=== PATIENT | female | born 1930 | race Caucasian/White ===

== ENCOUNTER → 2016-12-14 | Outpatient (CLI) | payer MEDICARE, OTHER ==
[~2016-12-14] MED LIST: MECL-68 PO; TESS100C PO; TYLE325T5 PO; VITA200016 PO
--- NOTE | 2016-12-14 13:52 | REP ---
LEFT KNEE, FIVE VIEWS: HISTORY: Contusion. COMPARISON: 01/25/2015 There is no acute fracture or dislocation. There is narrowing of the joint spaces. Osteophytes are present on the femur and patella. A very small suprapatellar joint effusion is present. IMPRESSION: Degenerative change, as described above. Signed by Timmy Kilgore MD 12/14/2016 01:57 P
--- NOTE | 2016-12-14 13:55 | REP ---
LEFT WRIST, FOUR VIEWS: HISTORY: Contusion. There is no acute fracture or dislocation. There is narrowing of the 1st carpometacarpal joint space with associated osteophyte formation and sclerosis. There is narrowing of the interphalangeal joint space of the 1st digit with associated osteophyte formation. IMPRESSION: Degenerative change, as described above. Signed by Timmy Kilgore MD 12/14/2016 01:56 P
== END ==
LOC: M WUC 13:02
PROVIDERS: ATTEND Physician Assistant
DX: S60.212A Contusion of left wrist, initial encounter (principal); S80.02XA Contusion of left knee, initial encounter; W18.30XA Fall on same level, unspecified, initial encounter; Y92.009 Unspecified place in unspecified non-institutional (private) residence as the place of occurrence of the external cause

== ENCOUNTER → 2017-02-17 | Outpatient (REF) | payer MEDICARE, OTHER ==
[2017-02-17 16:49] LABS: INR 0.99
[2017-02-17 16:52] LABS: BASO % 0.6 % (0.0-1.0); EOS # 0.2 K/mm3 (0.0-0.50); EOS % 2.3 % (0.0-3.0); LARGE UNSTAINED CELL # 0.1 K/mm3 (0.0-0.4); LARGE UNSTAINED CELL % 1.6 % (0.0-4.0); LYMPH # 1.9 K/mm3 (1.5-4.5); LYMPH % 21.8 % (24.0-44.0); MEAN CORPUSCULAR HEMOGLOBIN 28.6 pg (27.0-33.0); MEAN CORPUSCULAR HGB CONC 32.9 g/dl (32.0-36.5); MEAN CORPUSCULAR VOLUME 87.1 fl (80.0-96.0); MONO # 0.7 K/mm3 (0.0-0.8); MONO % 8.1 % (0.0-5.0); NEUTROPHILS # 5.2 K/mm3 (1.8-7.7); NEUTROPHILS % 65.6 % (36.0-66.0); PLATELET COUNT, AUTOMATED 199 k/mm3 (150-450)
[2017-02-17 17:53] LABS: ALBUMIN 3.4 GM/DL (3.2-5.2); ALKALINE PHOSPHATASE 60 U/L (45-117); ALT/SGPT 20 U/L (12-78); ANION GAP 7 MEQ/L (8-16); AST/SGOT 14 U/L (15-37); BILIRUBIN,TOTAL 0.4 MG/DL (0.2-1.0); BLOOD UREA NITROGEN 20 MG/DL (7-18); CALCIUM LEVEL 8.8 MG/DL (8.8-10.2); CARBON DIOXIDE LEVEL 29 MEQ/L (21-32); CHLORIDE LEVEL 108 MEQ/L (98-107); CREATININE FOR GFR 0.63 MG/DL (0.55-1.02); GLOMERULAR FILTRATION RATE > 60.0 (>32); GLUCOSE, FASTING 105 MG/DL (83-110); POTASSIUM SERUM 3.9 MEQ/L (3.5-5.1); SODIUM LEVEL 144 MEQ/L (136-145); TOTAL PROTEIN 6.8 GM/DL (6.4-8.2)
== END ==
LOC: M SFHCPLAZ 14:43
PROVIDERS: ATTEND Physician Assistant Medical
DX: Z01.818 Encounter for other preprocedural examination (principal); H25.12 Age-related nuclear cataract, left eye
CPT/HCPCS: 36415; 80053; 85025; 85610; 85730; 93005; G0463

== ENCOUNTER → 2017-03-24 | Outpatient (CLI) | payer MEDICARE, OTHER ==
--- NOTE | 2017-03-25 05:37 | ECHO ---
DATE OF PROCEDURE: 03/24/2017 REFERRING PHYSICIAN: Dr. Ankit Tyler. INDICATION: Abnormal ECG. HEIGHT: 157 cm. WEIGHT: 67 kg. DIMENSIONS: IVS: 1.3 LV: 3.7 LVPW: 1.3 LA: 3.4 Aorta: 3.5 FINDINGS: The study is of fair technical quality. Left ventricle is normal size and hyperdynamic contractility. I estimate LVEF around 70%. Right ventricle is normal size and systolic function. Both atria are at least mildly enlarged. Aortic valve was poorly visualized. There is some sclerosis but it appears to have three cusps. There are also mild degenerative abnormalities of mitral valve with mitral annular calcifications. Mobility of leaflets is preserved. Tricuspid valve appears normal. Pulmonic valve was not well seen. No pericardial effusion is present. Inferior vena cava is normal size. Aortic root is normal. Aortic arch and abdominal aorta were not well visualized. Doppler interrogation of aortic valve reveals trivial stenosis and mild insufficiency. There is trace mitral insufficiency and mild tricuspid insufficiency. Pulmonary artery pressure is calculated within normal limits based on fair quality TR jet. Mitral inflow pattern and tissue Doppler imaging of mitral annulus reveal grade 1 diastolic dysfunction. CONCLUSIONS: 1. Study is of fair technical quality. 2. Normal LV size with mild LVH and hyperdynamic LV systolic function. Grade 1 diastolic dysfunction. 3. Aortic sclerosis resulting in trivial stenosis and mild insufficiency. 4. Normal central venous pressure and probably normal pulmonary artery pressure. COMMENT: Subacute bacterial endocarditis (SBE) prophylaxis is not recommended. Overall study most consistent with hypertensive heart disease.
== END ==
LOC: M CARPUL 13:39
PROVIDERS: ATTEND Family Medicine
DX: I35.1 Nonrheumatic aortic (valve) insufficiency (principal)

== ENCOUNTER → 2018-02-09 | Outpatient (CLI) | payer MEDICARE, OTHER | LOC: M RAD 18:11 | DX: R51 Headache (principal); I67.81 Acute cerebrovascular insufficiency; G31.9 Degenerative disease of nervous system, unspecified; Z86.73 Personal history of transient ischemic attack (TIA), and cerebral infarction without residual deficits; I49.9 Cardiac arrhythmia, unspecified; H65.01 Acute serous otitis media, right ear; R42 Dizziness and giddiness | CPT/HCPCS: 70551 ==

== ENCOUNTER → 2018-02-09 | Outpatient (REF) | payer MEDICARE, OTHER ==
[2018-02-09 15:48] LABS: ANION GAP 9 MEQ/L (8-16); BLOOD UREA NITROGEN 22 MG/DL (7-18); CALCIUM LEVEL 8.9 MG/DL (8.8-10.2); CARBON DIOXIDE LEVEL 27 MEQ/L (21-32); CHLORIDE LEVEL 108 MEQ/L (98-107); CREATININE FOR GFR 0.69 MG/DL (0.55-1.30); GLOMERULAR FILTRATION RATE > 60.0 (>32); GLUCOSE, FASTING 109 MG/DL (70-100); POTASSIUM SERUM 4.2 MEQ/L (3.5-5.1); SODIUM LEVEL 144 MEQ/L (136-145)
== END ==
LOC: M SFHCPLAZ 14:29
DX: R51 Headache (principal)
CPT/HCPCS: 80048

== ENCOUNTER → 2018-02-10 | Outpatient (CLI) | payer MEDICARE, OTHER ==
[~2018-02-10] MED LIST changes: -MECL-68 PO; +PROHANCE 279.3MG/ML 15ML VIAL (A9576) As Ordered; -TESS100C PO; -TYLE325T5 PO; -VITA200016 PO
== END ==
LOC: M RAD 11:45
DX: R51 Headache (principal); R42 Dizziness and giddiness; R11.0 Nausea
CPT/HCPCS: A9576

== ENCOUNTER 2018-07-05 13:01 | Emergency (ER) | payer MEDICARE, OTHER ==
[~2018-07-05] VITALS: Ht 160 cm; Wt 66.8 kg
[~2018-07-05 13:01] MED LIST changes: +MECL-68 PO; -PROHANCE 279.3MG/ML 15ML VIAL (A9576) As Ordered; +TESS100C PO; +TYLE325T5 PO; +VITA200016 PO
[2018-07-05] MEDS ORDERED: VITA500T PO (13:10)
[2018-07-05] MEDS: NS 500 ML IV ONE ×2 (14:37→14:42)
[2018-07-05 14:42] LABS: BASO # 0.1 10^3/uL (0.0-0.2); BASO % 0.8 % (0.0-1.0); EOS # 0.1 10^3/uL (0.0-0.50); EOS % 1.3 % (0.0-3.0); HEMATOCRIT 44.9 % (36.0-47.0); HEMOGLOBIN 14.5 g/dl (12.0-15.5); LYMPH # 1.5 10^3/uL (1.5-4.5); LYMPH % 16.2 % (24.0-44.0); MEAN CORPUSCULAR HGB CONC 32.3 g/dl (32.0-36.5); MEAN CORPUSCULAR VOLUME 86.7 fl (80.0-96.0); MONO % 10.7 % (0.0-5.0); NEUTROPHILS # 6.5 10^3/uL (1.8-7.7); NEUTROPHILS % 70.7 % (36.0-66.0); PLATELET COUNT, AUTOMATED 254 10^3/uL (150-450); RED BLOOD COUNT 5.18 10^6/uL (4.00-5.40); WHITE BLOOD COUNT 9.2 10^3/uL (4.0-10.0)
[2018-07-05 14:52] LABS: APPEARANCE, URINE CLEAR (CLEAR); BACTERIA, URINE AUTO 1+ (NEGATIVE); BILIRUBIN, URINE AUTO NEGATIVE (NEGATIVE); BLOOD, URINE BLOOD 1+ (NEGATIVE); COLOR, URINE YELLOW (YELLOW); GLUCOSE, URINE (UA) AUTO NEGATIVE (NEGATIVE); KETONE, URINE AUTO NEGATIVE (NEGATIVE); LEUKOCYTE ESTERASE, URINE AUTO 2+ (NEGATIVE); MUCUS, URINE SMALL (NEGATIVE); NITRITE, URINE AUTO NEGATIVE (NEGATIVE); PROTEIN, URINE AUTO NEGATIVE (NEGATIVE); RBC, URINE AUTO 3 /HPF (0-3); SPECIFIC GRAVITY URINE AUTO 1.012 (1.002-1.035); SQUAMOUS EPITHELIAL CELL UR AU 1 /HPF (0-6); UROBILINOGEN, URINE AUTO 0.2 mg/dL (0.0-2.0); WBC, URINE AUTO 1 /HPF (0-3)
[2018-07-05 14:54] LABS: INR 0.98; PROTHROMBIN TIME 13.1 SECONDS (12.1-14.4)
[2018-07-05 14:55] LABS: PARTIAL THROMBOPLASTIN TIME 32.9 SECONDS (25.4-37.6)
[2018-07-05 15:07] LABS: ALBUMIN 3.3 GM/DL (3.2-5.2); ALT/SGPT 17 U/L (12-78); BILIRUBIN,DIRECT 0.1 MG/DL (0.0-0.2); BILIRUBIN,TOTAL 0.4 MG/DL (0.2-1.0); BLOOD UREA NITROGEN 16 MG/DL (7-18); CALCIUM LEVEL 8.9 MG/DL (8.8-10.2); CARBON DIOXIDE LEVEL 30 MEQ/L (21-32); CHLORIDE LEVEL 106 MEQ/L (98-107); CREATININE FOR GFR 0.57 MG/DL (0.55-1.30); GLOMERULAR FILTRATION RATE > 60.0 (>32); GLUCOSE, FASTING 96 MG/DL (70-100); POTASSIUM SERUM 4.2 MEQ/L (3.5-5.1); SODIUM LEVEL 142 MEQ/L (136-145); TOTAL PROTEIN 6.7 GM/DL (6.4-8.2)
[2018-07-05] MEDS ORDERED: ANUS2.5C2 TOP (15:36)
--- NOTE | 2018-07-05 15:40 | REP ---
Clinical: Left flank pain. Technique: Axial noncontrast images from the lung bases to the pubic symphysis with coronal and sagittal re-formations. Findings: Lung bases are clear. Liver, spleen, pancreas, gallbladder, bilateral adrenal glands and right kidney appear normal for noncontrast evaluation. Left kidney demonstrates peripelvic and cortical hypodensities likely representing cysts without perinephric stranding or hydroureteronephrosis. No evidence for obstructing ureteral calculi. The enteric system demonstrates moderate fecal stasis without obstruction. Diffuse colonic and sigmoid diverticulosis noted. No definite acute inflammatory process or evidence for diverticulitis identified. Pelvis demonstrates normal bladder and evidence for prior hysterectomy. No pelvic fluid or ascites. No free air. No adenopathy. Atherosclerotic changes of the aorta and vasculature without aneurysm. Musculoskeletal structures demonstrate degenerative changes and hemangiomas involving the T11, L2, and L4 vertebral bodies. Impression: 1. Hypodense lesions within the left kidney likely representing cysts may be followed by ultrasound. No hydronephrosis, intrarenal or obstructing ureteral calculi. 2. Diffuse colonic and sigmoid diverticulosis without definite evidence for diverticulitis or focal inflammatory process. 3. Further chronic changes as described above. 4. No ascites, focal inflammatory stranding, or adenopathy appreciated. Electronically Signed by Dennis Jung MD 07/05/2018 03:31 P
[2018-07-05] MEDS ORDERED: MIRA3350 PO (15:42)
[2018-07-05 15:45] VITALS: BP 138/86
--- NOTE | 2018-07-10 08:49 | ED PDOC ---
Post-Departure Follow-Up radiology rpeort faxed to Cinthya Miranda MD Jul 10, 2018 08:49
== END 2018-07-05 15:46 | disposition home or self-care (01) ==
LOC: M ED 13:01
DX: K64.8 Other hemorrhoids (principal); M47.9 Spondylosis, unspecified; N28.1 Cyst of kidney, acquired; K57.90 Diverticulosis of intestine, part unspecified, without perforation or abscess without bleeding; Z87.891 Personal history of nicotine dependence
CPT/HCPCS: 74176; 80048; 80076; 81001; 81002; 82270; 85025; 85610; 85730; 99284; G0463

== ENCOUNTER → 2018-07-26 | Outpatient (CLI) | payer MEDICARE, OTHER ==
[~2018-07-26] MED LIST changes: +ANUS2.5C2 TOP; +MIRA3350 PO; +VITA500T PO
--- NOTE | 2018-07-26 19:07 | REP ---
Nasal bones three views History: Contusion There is no acute fracture or bone lesion. The sinuses are clear. Impression: There is no acute fracture Electronically Signed by Timmy Kilgore MD 07/26/2018 06:59 P
== END ==
LOC: M WUC 18:36
PROVIDERS: ATTEND Physician Assistant
DX: S00.33XA Contusion of nose, initial encounter (principal); X58.XXXA Exposure to other specified factors, initial encounter; Y92.9 Unspecified place or not applicable

== ENCOUNTER 2019-03-07 20:28 | Emergency (ER) | payer MEDICARE, OTHER ==
[~2019-03-07] VITALS: Ht 160 cm; Wt 68.2 kg
[2019-03-07 20:28] VITALS: BP 186/93
[2019-03-07] MEDS ORDERED: NORCO 5/325MG TABLET (BULK FOR ED) PO ONE (22:30)
--- NOTE | 2019-03-08 07:38 | REP ---
Left ankle four views: There is soft tissue edema laterally. There is a fracture at the base of the fifth digit metatarsal, nondisplaced. There is demineralization. There is questionably a fracture along the posterior inferior margin of the cuboid ossicle on the lateral view. This could be artifact from demineralization and projection. Electronically Signed by Oj Sykes MD 03/08/2019 07:29 A
--- NOTE | 2019-03-08 07:39 | REP ---
Left foot four views: There is a fracture of the base of the fifth digit metatarsal, nondisplaced. There is demineralization. The lateral view there is question of a fracture of the posterior inferior margin of the cuboid. This could be artifact from demineralization and projection. Consider CT for confirmation if there is clinical point tenderness. Electronically Signed by Oj Sykes MD 03/08/2019 07:31 A
== END 2019-03-07 22:58 | disposition home or self-care (01) ==
LOC: M ED 20:28
DX: S93.402A Sprain of unspecified ligament of left ankle, initial encounter (principal); S92.352A Displaced fracture of fifth metatarsal bone, left foot, initial encounter for closed fracture; M85.872 Other specified disorders of bone density and structure, left ankle and foot; W19.XXXA Unspecified fall, initial encounter; Y92.099 Unspecified place in other non-institutional residence as the place of occurrence of the external cause; Y93.9 Activity, unspecified; Y99.9 Unspecified external cause status; I51.9 Heart disease, unspecified; Z79.899 Other long term (current) drug therapy; Z91.013 Allergy to seafood; Z88.0 Allergy status to penicillin; Z88.2 Allergy status to sulfonamides; Z88.1 Allergy status to other antibiotic agents; Z88.5 Allergy status to narcotic agent; Z91.89 Other specified personal risk factors, not elsewhere classified

== ENCOUNTER → 2020-01-09 | Outpatient (CLI) | payer MEDICARE, OTHER ==
[~2020-01-09] MED LIST changes: +ACET-683 PO; +MACR100C43 PO; -MECL-68 PO; +MECL1TAB31 PO; +TRAM50TA2 PO; +VITA-243 PO; -VITA500T PO
--- NOTE | 2020-01-09 12:51 | REP ---
Clinical: Lower back pain. Technique: AP, lateral, bilateral oblique and coned-down views of the lumbosacral spine. Findings: Chronic dextroconvex scoliosis, osteopenia and moderate multilevel degenerative changes are appreciated. No obvious acute fracture / compression injury or subluxation. Impression: Moderate multilevel degenerative spondylosis. Electronically Signed by Dennis Jung MD 01/09/2020 12:42 P
== END ==
LOC: M ADAMS 12:01
PROVIDERS: ATTEND Family Medicine
DX: M47.897 Other spondylosis, lumbosacral region (principal); M54.5 Low back pain
CPT/HCPCS: 72110; G0463

== ENCOUNTER 2020-01-11 16:51 | Emergency (ER) | payer MEDICARE, OTHER ==
[~2020-01-11] VITALS: Ht 160 cm; Wt 63.6 kg
[~2020-01-11 16:51] MED LIST changes: -ACET-683 PO; -MACR100C43 PO; -TRAM50TA2 PO
--- NOTE | 2020-01-11 18:41 | REPVR ---
PROCEDURE INFORMATION: Exam: CT Lumbar Spine Without Contrast Exam date and time: 01/11/2020 6:06 PM Age: 89 years old Clinical indication: Low back pain; Additional info: PT tender high lumbar, no grey, otc no help TECHNIQUE: Imaging protocol: Computed tomography images of the lumbar spine without contrast. Radiation optimization: All CT scans at this facility use at least one of these dose optimization techniques: automated exposure control; mA and/or kV adjustment per patient size (includes targeted exams where dose is matched to clinical indication); or iterative reconstruction. COMPARISON: DX SPINE LS COMPLETE 01/09/2020 12:00 PM FINDINGS: Vertebrae: Hemangioma of L4, L3, L2 and T11 vertebra. Grade 1 anterolisthesis of L4 over L5. L1-L2: Disc bulge. Bilateral facet hypertrophy. No spinal canal stenosis. Moderate bilateral neural foraminal narrowing. L2-L3: Disc bulge. Bilateral facet hypertrophy. No spinal canal stenosis. Moderate bilateral neural foraminal narrowing. L3-L4: Disc bulge. Bilateral facet hypertrophy. No spinal canal stenosis. Moderate bilateral neural foraminal narrowing. L4-L5: Disc bulge bilateral bilateral facet hypertrophy. Mild spinal canal stenosis. Moderate bilateral neural foraminal narrowing. L5-S1: Bilateral facet hypertrophy. Mild disc bulge. Moderate bilateral neural foraminal narrowing. No spinal canal stenosis. Other bones/joints: Diffuse demineralization of the bones. Stomach and bowel: Diverticulosis of the sigmoid colon. Vasculature: Atherosclerotic calcification of the abdominal aorta. Soft tissues: Unremarkable. IMPRESSION: No acute abnormality. Grade 1 anterolisthesis of L4 over L5, likely degenerative. Multilevel degenerative disc disease with neural foraminal narrowing. Moderate bilateral neural foraminal narrowing at L1-L2, L2-L3, L3-L4, L4-L5 and L5-S1. Mild spinal canal stenosis at L4-L5. Electronically signed by: Luis Hdz On 01/11/2020 18:40:28 PM
[2020-01-11] MEDS ORDERED: traMADol 50 MG TAB PO ONE ×2 (19:00→19:30)
[2020-01-11] MEDS ORDERED: TRAM50TA2 PO (19:24)
[2020-01-11] MEDS ORDERED: MACR100C43 PO (19:24)
[2020-01-11] MEDS ORDERED: NITROFURANTOIN (MACROBID) 100 MG CAP PO ONE (19:30)
[2020-01-11 19:34] VITALS: BP 157/80
--- NOTE | 2020-01-16 10:26 | ED PDOC ---
Post-Departure Follow-Up dr phillips faxed formal report of ct ls spine for fu Reese Davalos MD Jan 16, 2020 10:26
== END 2020-01-11 19:45 | disposition home or self-care (01) ==
LOC: M ED 16:51
DX: N39.0 Urinary tract infection, site not specified (principal)

== ENCOUNTER 2020-01-13 11:13 | Emergency (ER) | payer MEDICARE, OTHER ==
[~2020-01-13] VITALS: Ht 160 cm; Wt 63.6 kg
[~2020-01-13 11:13] MED LIST changes: +MACR100C43 PO; +TRAM50TA2 PO
--- NOTE | 2020-01-13 12:13 | REP ---
Clinical: Flank pain. Technique: Axial noncontrast images from the lung bases to the pubic symphysis with coronal and sagittal re-formations. Comparison: 07/05/2018. Findings: Liver, spleen, pancreas, gallbladder, and bilateral adrenal glands and right kidney are normal/stable. Left kidney demonstrates stable cortical and central peripelvic hypodensities compatible with cysts. No perinephric stranding or hydronephrosis. The enteric system is without obstruction or acute inflammatory process. Scattered colonic diverticulosis noted without acute diverticulitis. Pelvis demonstrates normal bladder and evidence for prior hysterectomy. No pelvic fluid or ascites. No free air. No adenopathy. Abdominal aorta without aneurysm or dissection. Musculoskeletal structures demonstrate degenerative changes without acute osseous abnormality. Lung bases are relatively clear. Impression: 1. Stable chronic changes to the left kidney. No evidence for acute urinary tract pathology. 2. Scattered colonic diverticula without acute diverticulitis. 3. No acute abdominopelvic pathology appreciated. Electronically Signed by Dennis Jung MD 01/13/2020 12:04 P
[2020-01-13 12:14] LABS: BASO # 0.1 10^3/uL (0.0-0.2); BASO % 0.5 % (0.0-1.0); EOS # 0.1 10^3/uL (0.0-0.5); EOS % 1.2 % (0.0-3.0); HEMATOCRIT 43.9 % (36.0-47.0); HEMOGLOBIN 13.9 g/dl (12.0-15.5); LYMPH # 1.1 10^3/uL (1.5-5.0); LYMPH % 10.6 % (24.0-44.0); MEAN CORPUSCULAR HEMOGLOBIN 28.1 pg (27.0-33.0); MEAN CORPUSCULAR HGB CONC 31.7 g/dl (32.0-36.5); MEAN CORPUSCULAR VOLUME 88.9 fl (80.0-96.0); MONO % 9.1 % (0.0-5.0); NEUTROPHILS # 8.4 10^3/uL (1.5-8.5); NEUTROPHILS % 78.2 % (36.0-66.0); PLATELET COUNT, AUTOMATED 239 10^3/uL (150-450); RED BLOOD COUNT 4.94 10^6/uL (4.00-5.40); WHITE BLOOD COUNT 10.7 10^3/uL (4.0-10.0)
[2020-01-13 12:35] LABS: ALBUMIN 3.3 GM/DL (3.2-5.2); ALT/SGPT 13 U/L (12-78); BILIRUBIN,DIRECT 0.2 MG/DL (0.0-0.2); BILIRUBIN,TOTAL 0.4 MG/DL (0.2-1.0); BLOOD UREA NITROGEN 24 MG/DL (7-18); CARBON DIOXIDE LEVEL 26 MEQ/L (21-32); CHLORIDE LEVEL 107 MEQ/L (98-107); CREATININE FOR GFR 0.67 MG/DL (0.55-1.30); GLOMERULAR FILTRATION RATE > 60.0 (>32); GLUCOSE, FASTING 111 MG/DL (70-100); LIPASE 60 U/L (73-393); SODIUM LEVEL 138 MEQ/L (136-145); TOTAL PROTEIN 6.5 GM/DL (6.4-8.2)
[2020-01-13] MEDS ORDERED: FOSFOMYCIN TROMETHAMINE 3 GM POWDER PACKET (MONUROL) PO ONE (13:15)
[2020-01-13] MEDS ORDERED: LIDOCAINE 5% (LIDODERM) PATCH TD ONE (13:15)
[2020-01-13 14:03] VITALS: BP 158/70
[2020-01-14] MEDS ORDERED: **NOTE PATIENT COMMENT** MISC XX ONE (02:00)
== END 2020-01-13 14:20 | disposition home or self-care (01) ==
LOC: M ED 11:13
DX: S39.012A Strain of muscle, fascia and tendon of lower back, initial encounter (principal); Y92.9 Unspecified place or not applicable; Y93.9 Activity, unspecified; Y99.9 Unspecified external cause status; N39.0 Urinary tract infection, site not specified; G50.0 Trigeminal neuralgia; G51.0 Bell's palsy; Z79.899 Other long term (current) drug therapy; Z91.013 Allergy to seafood; Z88.0 Allergy status to penicillin; Z88.2 Allergy status to sulfonamides

== ENCOUNTER 2020-01-22 11:37 | Emergency (ER) | payer MEDICARE, OTHER ==
[~2020-01-22] VITALS: Ht 160 cm; Wt 63.6 kg
[2020-01-22] MEDS ORDERED: ACET-683 PO (12:09)
[2020-01-22 13:15] LABS: BASO # 0.1 10^3/uL (0.0-0.2); BASO % 0.8 % (0.0-1.0); EOS # 0.1 10^3/uL (0.0-0.5); EOS % 0.6 % (0.0-3.0); HEMATOCRIT 44.9 % (36.0-47.0); HEMOGLOBIN 14.4 g/dl (12.0-15.5); LYMPH # 1.4 10^3/uL (1.5-5.0); LYMPH % 16.6 % (24.0-44.0); MEAN CORPUSCULAR HEMOGLOBIN 28.2 pg (27.0-33.0); MEAN CORPUSCULAR HGB CONC 32.1 g/dl (32.0-36.5); MEAN CORPUSCULAR VOLUME 87.9 fl (80.0-96.0); MONO # 0.8 10^3/uL (0.0-0.8); MONO % 8.9 % (0.0-5.0); NEUTROPHILS # 6.2 10^3/uL (1.5-8.5); NEUTROPHILS % 72.6 % (36.0-66.0); PLATELET COUNT, AUTOMATED 259 10^3/uL (150-450); RED BLOOD COUNT 5.11 10^6/uL (4.00-5.40); WHITE BLOOD COUNT 8.6 10^3/uL (4.0-10.0)
[2020-01-22] MEDS ORDERED: ACETAMINOPHEN 500 MG TAB PO ONE (13:15)
[2020-01-22 13:32] LABS: ALBUMIN 3.3 GM/DL (3.2-5.2); ALT/SGPT 12 U/L (12-78); BILIRUBIN,DIRECT 0.1 MG/DL (0.0-0.2); BILIRUBIN,TOTAL 0.3 MG/DL (0.2-1.0); BLOOD UREA NITROGEN 15 MG/DL (7-18); C REACTIVE PROTEIN QUANTITATIV 0.41 MG/DL (0.00-0.30); CALCIUM LEVEL 8.6 MG/DL (8.8-10.2); CARBON DIOXIDE LEVEL 25 MEQ/L (21-32); CHLORIDE LEVEL 110 MEQ/L (98-107); CREATININE FOR GFR 0.57 MG/DL (0.55-1.30); GLOMERULAR FILTRATION RATE > 60.0 (>32); GLUCOSE, FASTING 108 MG/DL (70-100); LIPASE 105 U/L (73-393); POTASSIUM SERUM 4.1 MEQ/L (3.5-5.1); SODIUM LEVEL 140 MEQ/L (136-145); TOTAL PROTEIN 6.6 GM/DL (6.4-8.2)
[2020-01-22 13:44] LABS: ERYTHROCYTE SEDIMENTATION RATE 12 mm/hr (0-30)
[2020-01-22] MEDS ORDERED: diazePAM 2 MG TAB PO ONE (14:00)
[2020-01-22] MEDS ORDERED: LIDOCAINE 5% (LIDODERM) PATCH TD ONE (14:00)
[2020-01-22] MEDS ORDERED: KETOROLAC 60MG 2ML VIAL IM ONE (16:30)
[2020-01-22] MEDS ORDERED: TRAM50TA2 PO (16:30)
[2020-01-22 17:12] VITALS: BP 142/92
[2020-01-23] MEDS ORDERED: **NOTE PATIENT COMMENT** MISC XX SCH (01:00)
--- NOTE | 2020-01-23 02:25 | REP ---
MRI LUMBAR SPINE WITHOUT CONTRAST: 01/22/2020. COMPARISON: CT lumbar 01/11/2020, x-ray 01/09/2020. TECHNIQUE: Sagittal T1/T2 and STIR with axial T1/T2. CLINICAL HISTORY: Severe back pain; no injury. FINDINGS: Sagittal images again show some loss of lordosis compared to the previous CT. There are whole vertebral hemangiomas at L4 and T12 and smaller anterior L3 and left lateral L2 hemangiomas. There is loss of disc water signal throughout. The T11-12, L2-3 through L4-5 disc levels all show loss of height, as well. The other levels are relatively spared in height. Do not see an acute compression deformity at T11, T12, or L1. Conus terminates at the L1-2 level. There is no central canal stenosis at any of these levels. There is some mild foraminal encroachment at L1-2. At L2-3, there is a broad-based disc bulge with some ligamentum and facet hypertrophic change, but the cross-sectional area of the canal is adequate. There is some foraminal encroachment bilaterally. When reviewing the CT scan from 01/11/2020, cortical discontinuity along the lateral aspect of the L2 vertebral body is seen. This is also suggested on the axial abdominal CT, and I suspect, in fact, this is a true fracture, probably subacute. I do not see significant hematoma adjacent to it. The central canal is preserved. There is foraminal encroachment bilaterally, left greater than right. At L3-4, there is cross-sectional area of the canal adequate with ligamentum and facet hypertrophy. There is bilateral foraminal encroachment, however. At L4-5, ligamentum and facet hypertrophy with broad-based disc bulge contributes to central canal stenosis at this level. Foramina show encroachment. At L5-S1, minimal disc bulge without protrusion. There is some ligamentum flavum hypertrophy. Cross-sectional area of the canal was adequate. Foramina show some mild encroachment. IMPRESSION: 1. There are chronic changes of hemangiomas at T11, L2, L3, and L4, stable with no new compression deformities. 2. However, in reviewing prior CT lumbar spine 01/11/[address] abdomen 01/13/2020, there is a vertically oriented linear cortical discontinuity in the lateral aspect of L2, which does not involve the neural canal. This is difficult to see by MR because of the hemangioma in this region. I suspect this is a subacute fracture. Contour of the vertebral body has not changed. There is inferior endplate depression, which is the same as on 07/05/[address] reconstructions. 3. Multilevel degenerative disc disease with combined factors, including disc bulges, facet and ligamentum flavum hypertrophy. Multilevel foraminal encroachment due to combined factors, all unchanged. There is no interval change in the appearance of the lumbar spine compared to the CT 01/11/2020. Electronically Signed by Gerson Whitfield MD 01/23/2020 08:46 A
== END 2020-01-22 17:17 | disposition home or self-care (01) ==
LOC: M ED 11:37
DX: D18.09 Hemangioma of other sites (principal); M51.36 Other intervertebral disc degeneration, lumbar region; Z79.899 Other long term (current) drug therapy; Z88.0 Allergy status to penicillin; Z88.2 Allergy status to sulfonamides; Z88.1 Allergy status to other antibiotic agents; Z88.5 Allergy status to narcotic agent; Z91.89 Other specified personal risk factors, not elsewhere classified; Z91.013 Allergy to seafood
CPT/HCPCS: 72148; 80048; 80076; 81001; 83690; 85025; 85652; 86140; 96372; 99283; J1885

== ENCOUNTER → 2020-07-02 | Outpatient (REF) | payer MEDICARE, OTHER ==
[~2020-07-02] MED LIST changes: +ACET-683 PO
[2020-07-02 17:52] LABS: HEMATOCRIT 47.4 % (36.0-47.0); HEMOGLOBIN 14.8 g/dl (12.0-15.5); MEAN CORPUSCULAR HEMOGLOBIN 28.4 pg (27.0-33.0); MEAN CORPUSCULAR HGB CONC 31.2 g/dl (32.0-36.5); PLATELET COUNT, AUTOMATED 226 10^3/uL (150-450); RED BLOOD COUNT 5.21 10^6/uL (4.00-5.40); WHITE BLOOD COUNT 9.2 10^3/uL (4.0-10.0)
[2020-07-02 18:06] LABS: ALBUMIN 3.4 GM/DL (3.2-5.2); ALT/SGPT 16 U/L (12-78); BILIRUBIN,TOTAL 0.3 MG/DL (0.2-1.0); BLOOD UREA NITROGEN 22 MG/DL (7-18); CALCIUM LEVEL 9.1 MG/DL (8.8-10.2); CARBON DIOXIDE LEVEL 30 MEQ/L (21-32); CHLORIDE LEVEL 107 MEQ/L (98-107); CREATININE FOR GFR 0.65 MG/DL (0.55-1.30); FREE T4 1.03 NG/DL (0.76-1.46); GLOMERULAR FILTRATION RATE > 60.0 (>32); GLUCOSE, FASTING 92 MG/DL (70-100); SODIUM LEVEL 143 MEQ/L (136-145); TOTAL PROTEIN 6.8 GM/DL (6.4-8.2)
[2020-07-02 18:07] LABS: TOTAL 25(OH) VITAMIN D 20.1 NG/ML (30.0-100.0)
== END ==
LOC: M PLALAB 15:19
PROVIDERS: ATTEND Family Medicine
DX: J45.909 Unspecified asthma, uncomplicated (principal); R03.0 Elevated blood-pressure reading, without diagnosis of hypertension; M81.0 Age-related osteoporosis without current pathological fracture